=== PATIENT | female | born 1995 | race Caucasian/White ===

== ENCOUNTER 2018-05-24 21:13 | Emergency (ER) | payer OTHER ==
[2018-05-24] MEDS ORDERED: Diphtheria,Pertussis(Acell),Tetanus Vaccine 0.5 ML SDV IM ONE (22:30)
[2018-05-24] MEDS ORDERED: Bacitracin Oint 1 GM U/D Packet TOP ONE (22:31)
--- NOTE | 2018-05-24 22:32 | EDM.PDOC ---
ED HPI GENERAL MEDICAL PROBLEM - General Chief Complaint: Laceration Stated Complaint: GASH IN RIGHT LEG Time Seen by Provider: 05/24/18 22:27 Source of Information: Reports: Patient History Limitations: Reports: No Limitations - History of Present Illness INITIAL COMMENTS - FREE TEXT/NARRATIVE: Laceration right lower leg: this is a 23-year-old female presents emergency room urgency room with her boyfriend, reports was trying to cross a fence, didn' t lift her leg high enough and was caught on a piece of the fence. She is now here for laceration repair. Denies or breast-feeding or chronic health conditions Onset: Sudden Onset Date: 05/24/18 Location: Reports: Lower Extremity, Right Quality: Reports: Ache Severity: Mild Improves with: Reports: Other (Applied bandage to control bleeding) Worsens with: Reports: Movement Context: Reports: Trauma Associated Symptoms: Reports: No Other Symptoms Treatments WRAPPER OFF: Reports: Dressing(s) Right Leg Pain Score (Numeric/FACES): 3 - Related Data Allergies Allergy/AdvReac Type Severity Reaction Status Date / Time No Known Allergies Allergy Verified 05/24/18 22:31 Home Meds: Home Meds Escitalopram [Lexapro] 20 mg PO DAILY 05/24/18 [History] Minocycline [Minocin] 100 mg PO DAILY 05/24/18 [History] buPROPion HCl [Wellbutrin Xl] 300 mg PO DAILY 05/24/18 [History] Social & Family History - Living Situation & Occupation Living situation: Reports: Single, with Family ED ROS GENERAL - Review of Systems Review Of Systems: See Below Constitutional: Reports: Other (Laceration to right leg no other injuries noted) HEENT: Reports: No Symptoms Musculoskeletal: Reports: No Symptoms Skin: Reports: Wound Neurological: Reports: No Symptoms Psychiatric: Reports: No Symptoms Hematologic/Lymphatic: Reports: No Symptoms Immunologic: Reports: No Symptoms ED EXAM, SKIN/RASH Exam: See Below Exam Limited By: No Limitations General Appearance: Alert, WD/WN, No Apparent Distress Ears: Normal External Exam Nose: Normal Inspection Neck: Normal Inspection, Supple Respiratory/Chest: No Respiratory Distress Extremities: Normal Range of Motion, Leg Pain (Secondary to laceration to the right leg) Neurological: No Motor/Sensory Deficits Psychiatric: Normal Affect, Normal Mood Skin: Warm, Other Location, Skin: Lower Extremity, Right (Laceration to right leg) Characteristics: Linear Associated features: Tenderness, Weeping (Scant bleeding noted) Lymphatic: No Adenopathy ED SKIN PROCEDURES - Laceration/Wound Repair Right Lower Medial Proximal Leg Lac/Wound length In cm: 3.5 Appearance: Subcutaneous, Linear Distal NVT: Neuro & Vascular Intact, No Tendon Injury Anesthetic Type: Local Local Anesthesia - Lidocaine (Xylocaine): 1% Plain Local Anesthetic Volume: 2cc Skin Prep: Chlorhexidine (Hibiciens), Saline Saline Irrigation (cc's): 20 Exploration/Debridement/Repair: Wound Explored, In a Bloodless Field, Explored to Base Closed with: Sutures Suture Size: 3-0 # of Sutures: 7 Suture Type: Prolene (-) Drain Placement: No Sterile Dressing Applied: Nurse Tetanus Status Addressed: Other Complications: No (Gas/fluid will give tetanus at today's visit ) Course - Vital Signs Last Recorded V/S: Last Vital Signs Temp 35.8 C 05/24/18 22:39 Pulse 63 05/24/18 22:39 Resp 16 05/24/18 22:39 BP 122/58 L 05/24/18 22:39 Pulse Ox 98 05/24/18 22:39 - Orders/Labs/Meds Orders: Active Orders 24 hr Category Date Time Status Vaccines to be Administered [RC] PER UNIT ROUTINE Care 05/24/18 22:31 Active Meds: Medications Discontinued Medications Generic Name Dose Route Start Last Admin Trade Name Trish PRN Reason Stop Dose Admin Bacitracin 1 dose 05/24/18 22:31 Bacitracin Oint 1 Gm TOP 05/24/18 22:32 ONETIME ONE Diphtheria/Tetanus/Acell Pertussis 0.5 ml 05/24/18 22:30 Adacel IM 05/24/18 22:31 .ONCE ONE Lidocaine HCl 5 ml 05/24/18 22:30 Xylocaine-Mpf 1% INJECT 05/24/18 22:31 ONETIME ONE - Re-Assessments/Exams Free Text/Narrative Re-Assessment/Exam: 05/24/18 23:03 Laceration repair, bandage applied, wound care discussed, sutures out in 10 days. Patient verbalized understanding of discharge plans prescription given for Keflex 500 mg by mouth twice a day 7 days for infection control. Departure - Departure Time of Disposition: 23:05 Disposition: Home, Self-Care 01 Condition: Good Clinical Impression: Broken skin, Laceration - Discharge Information Instructions: Laceration Care, Adult, [id number], Stitches, [place], or Adhesive Wound Closure, [id number] Referrals: PCP,None [Primary Care Provider] - Forms: ED Department Discharge Care Plan Goals: laceration repair with stitches -tetanus given in ER -Apply bacitracin to wound 2 times a day 3 days then keep clean and dry -Sutures out in 10 days -Monitor for signs of infection, -given prescription for Keflex 500 mg 1 by mouth twice a day 7 days for infection prevention Return to clinic or ER if has increased pain, redness, drainage, fever, chills, or any concerns. - Problem List & Annotations (1) Broken skin SNOMED Code(s): 668633438 Code(s): R23.8 - OTHER SKIN CHANGES Status: Acute Priority: High Current Visit: Yes (2) Laceration SNOMED Code(s): 813657469 Code(s): AUM9471 - Status: Acute Priority: High Current Visit: Yes - Problem List Review Problem List Initiated/Reviewed/Updated: Yes - My Orders Last 24 Hours: My Active Orders 05/24/18 22:31 Vaccines to be Administered [RC] PER UNIT ROUTINE - Assessment/Plan Last 24 Hours: My Active Orders 05/24/18 22:31 Vaccines to be Administered [RC] PER UNIT ROUTINE Plan: laceration repair with stitches -tetanus given in ER -Apply bacitracin to wound 2 times a day 3 days then keep clean and dry -Sutures out in 10 days -Monitor for signs of infection -given prescription for Keflex 500 mg 1 by mouth twice a day 7 days for infection prevention Return to clinic or ER if has increased pain, redness, drainage, fever, chills, or any concerns.
== END 2018-05-25 00:01 | disposition home or self-care (01) ==
LOC: JP.ED 21:13
DX: S81.811A Laceration without foreign body, right lower leg, initial encounter (principal); Z23 Encounter for immunization; W26.8XXA Contact with other sharp object(s), not elsewhere classified, initial encounter
CPT/HCPCS: 12002; 90471; 90715; 99283-25